=== PATIENT | female | born 1960 | race Hispanic/Latino ===

== ENCOUNTER → 2023-04-22 | Outpatient (CLI) | payer MEDICAID ==
[~2023-04-22] MED LIST: IOHEXOL 350 MG/ML 100ML INFUS..BTL IV ONE; METOPROLOL TARTRATE 1 MG/ML 5ML VIAL IV ONE
== END | disposition home or self-care (01) ==
LOC: RAH 07:44
PROVIDERS: ATTEND Student in an Organized Health Care Education/Training Program
DX: I25.10 Atherosclerotic heart disease of native coronary artery without angina pectoris (principal); R07.9 Chest pain, unspecified
CPT/HCPCS: 75574; J3490 ×2; Q9967

== ENCOUNTER 2023-05-17 07:35 | Day surgery (SDC) | payer MEDICAID ==
[2023-05-12 10:34] VITALS: BP 144/63; PULSE 75; RESP 15
[2023-05-12 11:22] LABS: BASOPHILS # (AUTO) 0.06 K/uL (0.00-0.20); BASOPHILS % (AUTO) 1.2 % (0.0-5.0); EOSINOPHILS # (AUTO) 0.21 K/uL (0.00-0.70); EOSINOPHILS % (AUTO) 4.3 % (0.0-8.0); HEMATOCRIT 32.4 % (36-48); IMMATURE GRANULOCYTE ABSOLUTE 0.02 K/uL (0-1); LYMPHOCYTES % (AUTO) 19.5 % (21.0-51.0); MEAN CORPUSCULAR HEMOGLOBIN 29.3 pg (27.0-33.0); MEAN CORPUSCULAR HGB CONC 31.8 g/dL (32.0-36.0); MEAN CORPUSCULAR VOLUME 92.3 fL (79-99); MONOCYTES # (AUTO) 0.5 K/uL (0.1-1.0); MONOCYTES % (AUTO) 9.3 % (3.0-13.0); NEUTROPHILS # (AUTO) 3.2 K/uL (1.8-7.7); NEUTROPHILS % (AUTO) 65.3 % (40.0-77.0); PLATELET COUNT (AUTO) 164 K/uL (130-400); RED BLOOD CELL COUNT(AUTO) 3.51 MIL/uL (4.00-5.50); RED CELL DISTRIBUTION WIDTH 14.9 % (11.0-15.5); WHITE BLOOD COUNT (AUTO) 4.9 K/uL (4.8-10.8)
[2023-05-12 11:26] LABS: CREATININE 6.8 mg/dL (0.5-1.5); POTASSIUM 4.4 mmol/L (3.5-5.1)
[2023-05-12 11:29] LABS: INR 0.94 (0.85-1.15); PROTHROMBIN TIME 10.9 SEC (9.6-11.6)
[2023-05-12 11:31] LABS: PARTIAL THROMBOPLASTIN TIME 27.9 SEC (26.3-35.5)
[2023-05-12 11:50] LABS: B-TYPE NATRIURETIC PEPTIDE 737 pg/mL (0-100)
[2023-05-17] VITALS (9 sets, daily range): BP systolic 141–167; BP diastolic 66–79; PULSE 71–100; RESP 14–16
[~2023-05-17 07:35] MED LIST changes: +AEC81 PO; +AURYXIA PO; +CARV12.511 PO; +HYDR-4068 PO; +INSU100I3 SQ; +INSU200I4 SQ; -IOHEXOL 350 MG/ML 100ML INFUS..BTL IV ONE; +LOSA50TA64 PO; -METOPROLOL TARTRATE 1 MG/ML 5ML VIAL IV ONE; +NIFE90TA65 PO; +ONDA-104 PO; +PANT40TA54 PO; +ROSU40TA21 PO; +VENL75CA97 PO
[2023-05-17] MEDS: 0.9%NACL 1000ML 1,000 ML IV ONE (08:22)
[2023-05-17] MEDS ORDERED: MIDAZOLAM HCL 1 MG/ML 2ML VIAL ONE ×2 (12:34→13:22)
[2023-05-17] MEDS ORDERED: FENTANYL CITRATE PF 50 MCG/1 ML 2ML VIAL ONE (12:34)
[2023-05-17] MEDS ORDERED: HEPARIN 10,000 UNIT/10ML (1,000 UNIT/ML) VIAL ONE (12:34)
[2023-05-17] MEDS ORDERED: LIDOCAINE HCL 400MG/20ML VIAL ONE (12:34)
[2023-05-17] MEDS ORDERED: IOHEXOL 350 MG/ML 100ML INFUS..BTL IV ONE (12:34)
[2023-05-17] MEDS ORDERED: VERAPAMIL HCL 2.5 MG/ML VIAL ONE (12:34)
[2023-05-17] MEDS ORDERED: NITROGLYCERIN 50MG VIAL ONE (12:35)
[2023-05-17] MEDS ORDERED: CLOPIDOGREL 300MG TAB ONE (13:50)
[2023-05-17] MEDS ORDERED: EPTIFIBATIDE 2 MG/ML 10 ML VIAL IVP ONE ×2 (13:50→13:57)
[2023-05-17] MEDS ORDERED: ASPIRIN 325MG EC TAB PO ONE (13:50)
[2023-05-17] MEDS ORDERED: EPTIFIBATIDE 75MG/100ML BOTTLE 100 ML IV ONE (13:50)
[2023-05-17] MEDS ORDERED: IOHEXOL-350 50ML VIAL IV ONE (14:14)
[2023-05-17] MEDS ORDERED: DEXTROSE 50%-WATER 50 ML DISP.SYRIN IV PRN (14:30)
[2023-05-17] MEDS ORDERED: GLUCAGON 1MG KIT 1 MG ML IM PRN (14:30)
[2023-05-17] MEDS ORDERED: 0.9%NACL 1000ML 1,000 ML IV SCH (14:30)
[2023-05-17] MEDS ORDERED: ONDANSETRON 4MG INJ ONE (14:35)
[2023-05-18] MEDS ORDERED: CLOPIDOGREL 75MG TAB PO SCH (09:00)
== END 2023-05-17 18:22 | disposition home or self-care (01) ==
LOC: DAH 07:35
PROVIDERS: ATTEND Student in an Organized Health Care Education/Training Program
DX: I25.119 Atherosclerotic heart disease of native coronary artery with unspecified angina pectoris (principal); E11.22 Type 2 diabetes mellitus with diabetic chronic kidney disease; I12.0 Hypertensive chronic kidney disease with stage 5 chronic kidney disease or end stage renal disease; N18.6 End stage renal disease; Z79.01 Long term (current) use of anticoagulants; Z79.899 Other long term (current) drug therapy; Z79.82 Long term (current) use of aspirin; Z98.890 Other specified postprocedural states; Z87.891 Personal history of nicotine dependence; Z99.2 Dependence on renal dialysis; Z95.5 Presence of coronary angioplasty implant and graft; Z98.891 History of uterine scar from previous surgery
CPT/HCPCS: 80048; 83880; 85025; 85610; 85730; 36415 ×2; 71045; 93005; 93458; 93571; 85347 ×2; 82948; C9600; C1769 ×3; C1725 ×2; C1874 ×2; C1894; A4649; C1887; J3010; J3490 ×3; J7030; J1644 ×2; J2250 ×2; J2405; J1327 ×3; Q9967 ×2; A4215; A4222; A4221; A4663; A4216; A4606; Q9965; A4223 ×3; 99156; 99157